=== PATIENT | male | born 2000 | race Caucasian/White ===

== ENCOUNTER 2021-11-24 23:13 | Emergency (ER) | payer MEDICAID, OTHER ==
--- NOTE | 2021-11-24 23:40 | ERPHSYRPT ---
- History of Present Illness Source: patient Patient Subjective Stated Complaint: pt states "I have this foot pain that comes and goes. 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 Pt denies trauma and does have a h/o chronic foot pain due to achilles stretching and Botox injections as a child due to CP. Method of Injury: unknown Occurred: other (11/21/21) Quality: constant Severity of Pain-Max: moderate Severity of Pain-Current: moderate Lower Extremities Pain: foot: left Modifying Factors: Improves With: movement Associated Symptoms: none, No unable to bear weight Allergies/Adverse Reactions: Penicillins Allergy (Verified 11/24/21 23:20) Rash Hx Tetanus, Diphtheria Vaccination/Date Given: No Hx Influenza Vaccination/Date Given: No Hx Pneumococcal Vaccination/Date Given: No Travel Risk - International Travel Have you traveled outside of the country in past 3 weeks: No - Coronavirus Screening Are you exhibiting any of the following symptoms?: No Close contact with a COVID-19 positive Pt in past 14-21 Days: No - Vaccine Status Have you recieved a Covid-19 vaccination: No - Review of Systems Constitutional: No Symptoms Eyes: No Symptoms Ears, Nose, & Throat: No Symptoms Respiratory: No Symptoms Cardiac: No Symptoms Abdominal/Gastrointestinal: No Symptoms Genitourinary Symptoms: No Symptoms Skin: No Symptoms Neurological: No Symptoms Psychological: No Symptoms Endocrine: No Symptoms Hematologic/Lymphatic: No Symptoms Immunological/Allergic: No Symptoms - Past Medical History Pertinent Past Medical History: Yes Other Medical History: cerebal palsy - Past Surgical History Past Surgical History: Yes Musculoskeletal: Orthopedic Surgery - Social History Smoking Status: Current every day smoker How long have you smoked: 3 Exposure to second hand smoke: Yes Drug Use: none Patient Lives Alone: No - Nursing Vital Signs Nursing Vital Signs: Initial Vital Signs Temperature 98.2 F 11/24/21 23:20 Pulse Rate 95 H 11/24/21 23:20 Respiratory Rate 14 02/16/22 23:20 Blood Pressure 136/98 11/24/21 23:20 O2 Sat by Pulse Oximetry 98 11/24/21 23:20 Pain Scale Pain Intensity 7 WNL - Physical Exam General Appearance: no apparent distress Eyes, Ears, Nose, Throat Exam: normal ENT inspection Neck Exam: normal inspection Cardiovascular/Respiratory Exam: normal breath sounds, regular rate/rhythm, heart sounds normal, No murmur Gastrointestinal/Abdominal Exam: non-tender, soft Back Exam: normal inspection Hips Exam: bilateral: non-tender, normal inspection, normal range of motion, no evidence of injury Legs Exam: bilateral leg: non-tender, normal inspection, normal range of motion, no evidence of injury Knees Exam: bilateral knee: non-tender, normal inspection, normal range of motion, no evidence of injury Ankle Exam: bilateral ankle: non-tender, normal inspection, normal range of motion, no evidence of injury Foot Exam: left foot: bone tenderness (L dorsal lateral foot mildly TTP/No edema/No erythema/No ecchymosis/Good pedal pulse, distal sensation, and capillary return) DTR - Lower Extremities Exam: knee (R): 2+, knee (L): 2+ Neuro/Tendon Exam: normal sensation, normal motor functions, normal tendon functions, responds to pain, no evidence tendon injury, No motor deficit, No sensory deficit Mental Status Exam: alert, oriented x 3, cooperative Skin Exam: normal color, warm, dry SpO2 Interpretation: normal SpO2: 98 O2 Delivery: Room Air - Radiology Exams Foot X-ray Interpretation: Interpreted by me (Chronic deformity wo [id number]) Ordered Tests: Medication Summary Discontinued Medications Generic Name Dose Route Start Last Admin Trade Name Nikole PRN Reason Stop Dose Admin Ketorolac Tromethamine 30 mg 11/25/21 00:03 11/25/21 00:10 Ketorolac Tromethamine 30 Mg/Ml Inj IM 11/25/21 00:04 30 mg STAT ONE Administration Ketorolac Tromethamine Confirm 11/25/21 00:09 Ketorolac Tromethamine 30 Mg/Ml Inj Administered 11/25/21 00:10 Dose 30 mg .ROUTE .STK-MED ONE - Progress Progress: improved Progress Note: 11/25/21 00:05 30mg IM Toradol Counseled pt/family regarding: diagnosis, need for follow-up, rad results - Departure Departure Disposition: Home Clinical Impression: Foot pain, left Condition: Stable Critical Care Time: No Referrals: DOCTOR,NO FAMILY [Primary Care Provider] - Follow up/PCP as directed Instructions: Foot Sprain (DC) Additional Instructions: Weight bearing as tolerated Toradol as needed for pain Forms: Work/School Release Form Prescriptions: Etodolac 400 mg PO BID PRN #14 tablet PRN Reason: Pain
[2021-11-25] MEDS ORDERED: TORAdol 30 mg Injection IM ONE (00:03)
[2021-11-25] MEDS ORDERED: TORAdol 30 mg Injection ONE (00:09)
[2021-11-25 00:22] VITALS: BP 132/83; PULSE 91
[2021-11-25 05:07] VITALS: O2SAT 98
--- NOTE | 2021-11-25 09:00 | XRAY ---
Indication: 1st/2nd toe pain. Comparison: None 3 nonweightbearing views left foot demonstrates 2nd-5th hammertoe deformities and 9 mm anterior talus bone island. No other bony, articular, or soft tissue abnormalities.
== END 2021-11-25 00:27 | disposition home or self-care (01) ==
LOC: ED 23:13
DX: M79.672 Pain in left foot (principal); G89.29 Other chronic pain; G80.9 Cerebral palsy, unspecified; Z72.0 Tobacco use
CPT/HCPCS: 73630; 96372; 99284; J1885